=== PATIENT | male | born 1965 | race American Indian/Alaskan Native ===

== ENCOUNTER 2021-08-12 19:35 | Emergency (ER) | payer OTHER, BC ==
[2021-08-12 21:17] VITALS: BP 163/117
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
[2021-08-12] MEDS ORDERED: ACETAMINOPHEN 325 MG TAB PO ONE (23:32)
[2021-08-12] MEDS ORDERED: IBUPROFEN 400 MG TAB PO ONE (23:32)
== END 2021-08-13 00:24 | disposition home or self-care (01) ==
LOC: ED 19:35
DX: Z04.1 Encounter for examination and observation following transport accident (principal); V89.2XXA Person injured in unspecified motor-vehicle accident, traffic, initial encounter; Y93.89 Activity, other specified; Y92.89 Other specified places as the place of occurrence of the external cause; Y99.8 Other external cause status
CPT/HCPCS: 99282